=== PATIENT | female | born 1980 | race Caucasian/White ===

== ENCOUNTER 2016-12-13 09:56 | Emergency (ER) | payer MEDICAID, OTHER ==
[2016-12-13] MEDS ORDERED: TDAP ADULT 0.5 ML INJ (BOOSTRIX) IM ONE (10:20)
[2016-12-13] MEDS ORDERED: DIPH,PERTUSS(ACELL),TET PED/PF 0.5 ML VIAL IM ONE (10:39)
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
[2016-12-13 10:46] VITALS: BP 93/68; PULSE 72; RESP 16; TEMP 98.1; O2SAT 98
== END 2016-12-13 10:45 | disposition home or self-care (01) ==
LOC: CED 09:56
DX: S40.872A Other superficial bite of left upper arm, initial encounter (principal); W50.3XXA Accidental bite by another person, initial encounter
CPT/HCPCS: 99202-PO; G0463-PO